=== PATIENT | male | born 1970 | race Caucasian/White ===

== ENCOUNTER 2022-04-02 23:30 | Emergency (ER) | payer BC ==
[2022-04-02] MEDS ORDERED: Oxymetazoline 0.05% Nasal Spray 30 ML Bottle NAS ONE (23:42)
== END 2022-04-03 01:03 | disposition home or self-care (01) ==
LOC: JD.ED 23:30
DX: R04.0 Epistaxis (principal); Z88.0 Allergy status to penicillin
CPT/HCPCS: 99283; A9270